=== PATIENT | male | born 1985 | race Caucasian/White ===

== ENCOUNTER 2017-12-07 07:08 | Emergency (ER) | payer SELFPAY ==
[~2017-12-07] VITALS: Ht 180.3 cm; Wt 74.8 kg
--- OUTSIDE RECORDS SUMMARY | 2017-12-07 07:11 | XMS REPORT | Clinical Summary ---
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 Name Role Phone Asked, Pcp PCP Unavailable Allergies No Known Allergies Current Medications No known medications Active Problems Not on file Encounters Date Type Specialty Care Team Description 11/28/2017 Emergency Emergency Medicine Trey Rand Drug- seeking behavior MD Richard (Primary Dx); Cellulitis of right leg; Malingering; Narcotic abuse after 12/06/2016 Social History Tobacco Use Types Packs/Day Years Used Date Never Assessed Sex Assigned at Date Recorded Not on file Last Filed Vital Signs Vital Sign Reading Time Taken Blood Pressure 141/73 11/28/2017 9:28 PM CDT Pulse 104 11/28/2017 9:28 PM CDT Temperature 37.3 C (99.1 F) 11/28/2017 9:28 PM CDT Respiratory Rate 19 11/28/2017 9:28 PM CDT Oxygen Saturation 98% 11/28/2017 9:28 PM CDT Inhaled Oxygen - - Concentration Weight 79.4 kg (175 lb) 11/28/2017 9:29 PM CDT Height 180.3 cm (5' 11") 11/28/2017 9:29 PM CDT Body Mass Index 24.41 11/28/2017 9:29 PM CDT Plan of Treatment Health Maintenance Due Date Last Done Comments INFLUENZA VACCINE 02/19/2018 Results * XR Tibia Fibula 2 Vw Right (11/28/2017 11:16 PM) Specimen Performing Laboratory [facility] [address] [place] [address] Narrative Examination:XR TIBIA FIBULA 2 VW RIGHT Clinical History: painswelling Comparison: None. Findings: 2 views of the right tibia and fibula are obtained. No acute fracture or dislocation is seen. The joint spaces are within normal limits. Soft tissues are unremarkable. IMPRESSION: 1. No acute abnormality identified in the right tibia and fibula. [facility]-[id number] Procedure Note Hm Interface, Radiology Results Incoming - 11/28/2017 11:31 PM CDT Examination: XR TIBIA FIBULA 2 VW RIGHT Clinical History: pain swelling Comparison: None. Findings: 2 views of the right tibia and fibula are obtained. No acute fracture or dislocation is seen. The joint spaces are within normal limits. Soft tissues are unremarkable. IMPRESSION: 1. No acute abnormality identified in the right tibia and fibula. [facility]-[id number] * Blood culture, aerobic & anaerobic (11/28/2017 11:00 PM) Only the most recent of 2 results within the time period is included. Component Value Ref Range Blood culture isolate No growth after 5 days of incubation. Comment: Specimen Information Specimen Source: Blood Specimen Site: R HAND Specimen Performing Laboratory Blood [facility] DEPARTMENT OF PATHOLOGY AND GENOMIC MEDICINE [address] [place] [id number] * Lactic acid level, SEPSIS - Now and repeat 2x every 3 hours (11/28/2017 10:57 PM) Component Value Ref Range Lactic acid 1.2 0.5 - 2.2 mmol/L Specimen Performing Laboratory Blood [facility] [place] [address] * Estimated GFR (11/28/2017 10:57 PM) Component Value Ref Range GFR Non Af Amer >90 mL/min/1.73 m2 GFR Af Amer >90 mL/min/1.73 m2 Comment: Chronic kidney disease: <60 mL/min/1.73m2 Kidney failure: <15 mL/min/1.73m2 The estimated GFR is calculated from the IDMS-traceable Modification of Diet in Renal Disease Equation. The accuracy of the calculation is poor when the creatinine is normal. Calculated values >90 mL/min/1.73m2 are not reported. This equation has not been validated in children (<18 years), women, the elderly (>70 years), or ethnic groups other than Caucasians and Americans. Specimen Performing Laboratory Plasma specimen [facility] [address] [place] [address] * CBC with platelet and differential (11/28/2017 10:57 PM) Component Value Ref Range WBC 9.5 4.2 - 11.0 k/uL RBC 4.58 4.04 - 5.86 m/uL HGB 13.7 13.0 - 17.3 g/dL HCT 41.4 34.0 - 45.0 % MCV 90.4 80.0 - 98.0 fL MCH 29.9 27.0 - 34.0 pg MCHC 33.1 31.5 - 36.5 g/dL RDW - SD 41.1 37.0 - 51.0 fL MPV 8.4 7.4 - 10.4 fL Platelet count 385 150 - 400 k/uL Nucleated RBC 0.00 /100 WBC Neutrophils 51.1 36.0 - 66.0 % Lymphocytes 35.5 24.0 - 44.0 % Monocytes 7.2 (H) 0.0 - 6.0 % Eosinophils 5.3 0.0 - 6.0 % Basophils 0.7 0.0 - 1.2 % Immature granulocytes 0.2 0.0 - 1.0 % Specimen Performing Laboratory Blood [facility]OM[facility]IC[facility] [address] [place] [address] * Comprehensive metabolic panel (11/28/2017 10:57 PM) Component Value Ref Range Sodium 142 135 - 150 mEq/L Potassium 3.8 3.5 - 5.0 mEq/L Chloride 106 100 - 109 mEq/L CO2 24 24 - 32 mmol/L Anion gap 12 7 - 15 mEq/L Comment: Starting from October , anion gap calculation no longer incorporates potassium. Please note the change. BUN 18 7 - 18 mg/dL Creatinine 0.9 0.8 - 1.5 mg/dL Glucose 85 65 - 100 mg/dL Calcium 8.7 8.6 - 10.7 mg/dL Protein 7.7 6.3 - 8.2 g/dL Albumin 3.7 3.2 - 5.0 g/dL A/G ratio 0.9 0.7 - 3.8 Alkaline phosphatase 86 30 - 120 U/L AST 30 15 - 37 U/L ALT 30 30 - 65 U/L Total bilirubin 0.3 0.2 - 1.2 mg/dL Specimen Performing Laboratory Plasma specimen [facility]OM[facility] [address] [place] [address] after 12/06/2016
[2017-12-07] MEDS ORDERED: HYDROCODONE/APAP 10MG-325MG TAB PO ONE (07:45)
--- NOTE | 2017-12-07 08:25 | Diagnostic Imaging Report ---
Exam: Right wrist Series. History: Status post fall Comparison: None. Findings: 3 views of the right wrist. There is normal bone mineralization. Acute, comminuted fracture of the distal radial metaphysis, likely extending into the articular space in the medial/ulnar aspect. Other bony structures are intact. Alignment of the lunate and scaphoid with the radius is preserved. The joint spaces are normal. No abnormal soft tissue calcification or mass. Moderate soft tissue swelling surrounding the wrist. Impression: 1. Acute, comminuted fracture of the distal radial metaphysis likely extending into the articular space, with associated moderate soft tissue swelling. Signed by: Dr. Andrea Retana M.D. on 12/07/2017 8:21 AM
--- NOTE | 2017-12-07 08:30 | Diagnostic Imaging Report ---
Exam: left forearm series. History: Status post fall Comparison: None. Findings: There is normal bone mineralization. Acute, likely comminuted fracture of the radial head, better seen on elbow films performed same day. Marked anterior fat pad elevation with mild posterior fat pad elevation. 1.7 cm sclerotic focus in the proximal radial diaphysis, with nonaggressive appearance, which may represent a bone island. Joint spaces preserved. No abnormal soft tissue calcification or soft tissue defect. Mild soft tissue swelling. Impression: 1. Acute, comminuted fracture of the radial head. Marked anterior fat pad elevation and mild posterior fat-pad elevation consistent with hemarthrosis. Signed by: Dr. Andrea Retana M.D. on 12/07/2017 8:27 AM
--- NOTE | 2017-12-07 08:32 | Diagnostic Imaging Report ---
Exam: Left elbow, 3 views History: Status post fall Comparison: None. Findings: There is normal bone mineralization. Acute, comminuted, nondisplaced, intra-articular fracture of the radial head. Other bony structures are intact. Marked elevation of the anterior and mild elevation of the posterior fat pads. Joint spaces preserved. No abnormal soft tissue calcification or soft tissue defect. Mild soft tissue swelling. Impression: 1. Acute, comminuted, nondisplaced, intra-articular fracture of the radial head. Associated hemarthrosis. Signed by: Dr. Andrea Retana M.D. on 12/07/2017 8:28 AM
== END 2017-12-07 09:19 | disposition home or self-care (01) ==
LOC: ER 07:08
DX: S52.591A Other fractures of lower end of right radius, initial encounter for closed fracture (principal); S52.122A Displaced fracture of head of left radius, initial encounter for closed fracture; V00.131A Fall from skateboard, initial encounter; Y93.51 Activity, roller skating (inline) and skateboarding; Y92.488 Other paved roadways as the place of occurrence of the external cause
CPT/HCPCS: 99283